=== PATIENT | male | born 1965 ===

== ENCOUNTER → 2017-06-29 | Outpatient (CLI) | payer SELFPAY | END | disposition home or self-care (01) | LOC: LABWHC1 10:58 | PROVIDERS: ATTEND Urology | DX: N40.0 Benign prostatic hyperplasia without lower urinary tract symptoms (principal) | CPT/HCPCS: 36415; 84153 ==

== ENCOUNTER 2017-12-28 11:46 | Emergency (ER) | payer OTHER ==
--- NOTE | 2017-12-28 12:45 | XR ---
EXAMINATION TYPE: XR chest 2V DATE OF EXAM: 12/28/2017 COMPARISON: 10/03/2016 TECHNIQUE: PA and lateral views submitted. HISTORY: Cough and congestion FINDINGS: The lungs are clear and there is no pneumothorax, pleural effusion, or focal pneumonia. Mild hyperi nflation. Arthropathy of the right AC joint. No overt failure. Correlate for COPD. IMPRESSION: 1. No acute process.
--- NOTE | 2017-12-28 12:51 | CT ---
EXAMINATION TYPE: CT abdomen pelvis wo con DATE OF EXAM: 12/28/2017 COMPARISON: NONE HISTORY: LLQ pain, pelvic pain, history of renal stones CT DLP: 961 mGycm Automated exposure control for dose reduction was used. TECHNIQUE: Helical acquisition of images was performed from the lung bases through the pelvis. FINDINGS: LUNG BASES: There is minimal bibasilar subsegmental dependent atelectasis. LIVER/GB: Hepatic cysts measure 2.5 cm, 6 mm, and 7 mm on series 3 image 25, 22, and 12 respectively. PANCREAS: No significant abnormality is seen. SPLEEN: Small splenule seen adjacent to the mentasta spleen. ADRENALS: No significant abnormality is seen. No nodularity. KIDNEYS: Multiple left-sided calculi are seen within the left mid pole and lower pole measuring up to 8 mm within the mid pole anteriorly and up to 6 mm within the lower pole. There are 5 total in numbe r on the left. No right-sided nephrolithiasis. No hydronephrosis bilaterally. There is fullness of th e left renal pelvis and a renal sinus cyst. Other cortically-based bilateral probable renal cysts are seen although not fully evaluated without contrast. FREE AIR: No free air is visualized ADENOPATHY: No greater than 1 cm short axis lymph nodes are seen within the abdomen or pelvis. REPRODUCTIVE ORGANS: No significant abnormality is seen URINARY BLADDER: No calculi within the urinary bladder. OSSEOUS STRUCTURES: Minimal multilevel degenerative disc disease of the visualized thoracic lumbar s pine. Osseous structures are intact. BOWEL: There is an epiploic appendage on the antimesenteric border of the sigmoid colon with surroun ding inflammatory fat stranding customer development representative of acute epiploic appendicitis. No bowel obstruction o r focal bowel wall thickening is identified. IMPRESSION: 1. ACUTE EPIPLOIC APPENDICITIS IN THE ANTIMESENTERIC BORDER OF THE SIGMOID COLON. 2. MULTIPLE NONOBSTRUCTING LEFT-SIDED RENAL CALCULI TOTALING 5 IN NUMBER AND MEASURING UP TO 8 MM. NO HYDRONEPHROSIS OR OBSTRUCTIVE UROPATHY BILATERALLY.
--- NOTE | 2017-12-28 13:02 | ED ---
Abdominal Pain HPI - General Chief Complaint: Abdominal Pain Stated Complaint: LOWER LEFT ABDOMEN PAIN Time Seen by Provider: 12/28/17 11:59 Source: patient Mode of arrival: ambulatory Limitations: no limitations - History of Present Illness Initial Comments: This is a 52-year-old male with a history of kidney stones in the past he states he has to still was in his left kidney who states that 4 days ago he was lifting something at work he started developing sharp left lower quadrant and flank abdominal pain. It is worse is 10 now it's almost gone. He is not feeling any abnormalities states when he pushes on certain areas it hurts he had no dysuria hematuria fevers chills sweats or other symptoms. He states he had a similar episode like this in the past we did some lifting. Additionally he states she's been doing a lot of coughing he believes he has a bronchitis that is still going on. He denies any phlegm production. No nasal discharge. The pain is described as sharp when it occurs it does not radiate to his testicles or penis. MD Complaint: abdominal pain, flank pain - Related Data Home Medications Medication Instructions Recorded Confirmed Ibuprofen [Motrin] 800 mg PO Q6H PRN 12/28/17 12/28/17 Previous Rx's Medication Instructions Recorded Amoxicillin/Potassium Clav 1 tab PO Q12HR #20 tab 12/28/17 [Augmentin 875-125 Tablet] Ibuprofen 800 mg PO Q6HR PRN #20 tablet 12/28/17 Allergies Allergy/AdvReac Type Severity Reaction Status Date / Time ciprofloxacin [From Cipro] AdvReac Nausea & Verified 12/28/17 12:11 Vomiting & Diarrhea ciprofloxacin HCl AdvReac Nausea & Verified 12/28/17 12:11 [From Cipro] Vomiting & Diarrhea Review of Systems ROS Statement: Those systems with pertinent positive or pertinent negative responses have been documented in the HPI. ROS Other: All systems not noted in ROS Statement are negative. Past Medical History Additional Past Medical History / Comment(s): kidney stones History of Any Multi-Drug Resistant Organisms: None Reported Past Surgical History: No Surgical Hx Reported Additional Past Surgical History / Comment(s): testicular torsion surgery Past Anesthesia/Blood Transfusion Reactions: Unable to Obtain Additional Past Anesthesia/Blood Transfusion Reaction / Comment(s): pt. states he has not previously received anesethia Past Psychological History: No Psychological Hx Reported Smoking Status: Former smoker Past Alcohol Use History: None Reported Past Drug Use History: None Reported - Past Family History Father Family Medical History: Myocardial Infarction (MS) Additional Family Medical History / Comment(s): pt. states his father has had an MS in the past and has a pacemaker General Exam - General Exam Comments Initial Comments: This is a well-developed well-nourished awake alert oriented 3 male Limitations: no limitations General appearance: alert, in no apparent distress Head exam: Present: atraumatic, normocephalic, normal inspection Eye exam: Present: normal appearance, PERRL, EOMI. Absent: scleral icterus, conjunctival injection, periorbital swelling ENT exam: Present: normal exam, mucous membranes moist Neck exam: Present: normal inspection. Absent: tenderness, meningismus, lymphadenopathy Respiratory exam: Present: normal lung sounds bilaterally. Absent: respiratory distress, wheezes, rales, rhonchi, stridor Cardiovascular Exam: Present: regular rate, normal rhythm, normal heart sounds. Absent: systolic murmur, diastolic murmur, rubs, gallop, clicks GI/Abdominal exam: Present: soft, tenderness (Some tenderness palpation just lateral to the rectus muscles into the left lower quadrant abdomen. No defect is palpable no other findings no erythema no open wounds), normal bowel sounds. Absent: distended, guarding, rebound, rigid, mass, bruit, pulsatile mass, hernia Rectal exam: Present: deferred exam: Present: normal inspection. Absent: testicular tenderness Extremities exam: Present: normal inspection, full ROM, normal capillary refill. Absent: tenderness, pedal edema, joint swelling, calf tenderness Back exam: Present: normal inspection Neurological exam: Present: alert, oriented X3, CN II-XII intact Psychiatric exam: Present: normal affect, normal mood Skin exam: Present: warm, dry, intact, normal color. Absent: rash Course Vital Signs 12/28/17 12/28/17 11:48 13:49 Temperature 98.1 F 97.4 F L Pulse Rate 69 88 Respiratory 20 18 Rate Blood Pressure 156/87 114/76 O2 Sat by Pulse 99 99 Oximetry Medical Decision Making - Medical Decision Making I did discuss [employer] the patient and family members or present in addition to Dr. Pelletier. The patient will be discharged on oral antibiotics he is a follow -up in 4 days and return if any problems. The presentation is consistent with both the epiploic appendicitis as well as a likely abdominal wall muscle strain due to the precipitating event of heavy lifting. - Lab Data Result diagrams: 12/28/17 13:56 18 13:56 Lab Results 18 18 18 Range/Units 12:12 13:56 13:56 WBC 9.0 (3.8-10.6) k/uL RBC 5.17 (4.30-5.90) m/uL Hgb 16.3 (13.0-17.5) gm/dL Hct 46.0 (39.0-53.0) % MCV 89.0 (80.0-100.0) fL MCH 31.6 (25.0-35.0) pg MCHC 35.5 (31.0-37.0) g/dL RDW 12.9 (11.5-15.5) % Plt Count 275 (150-450) k/uL Neutrophils % 55 % Lymphocytes % 35 % Monocytes % 4 % Eosinophils % 3 % Basophils % 1 % Neutrophils # 5.0 (1.3-7.7) k/uL Lymphocytes # 3.2 (1.0-4.8) k/uL Monocytes # 0.4 (0-1.0) k/uL Eosinophils # 0.3 (0-0.7) k/uL Basophils # 0.1 (0-0.2) k/uL PT 10.3 (9.0-12.0) sec INR 1.0 (<1.2) APTT 25.3 (22.0-30.0) sec Sodium (137-145) mmol/L Potassium (3.5-5.1) mmol/L Chloride (98-107) mmol/L Carbon Dioxide (22-30) mmol/L Anion Gap mmol/L BUN (9-20) mg/dL Creatinine (0.66-1.25) mg/dL Est GFR (CKD-EPI)AfAm (>60 ml/min/1.73 sqM) Est GFR (CKD-EPI)NonAf (>60 ml/min/1.73 sqM) Glucose (74-99) mg/dL Calcium (8.4-10.2) mg/dL Magnesium (1.6-2.3) mg/dL Total Bilirubin (0.2-1.3) mg/dL AST (17-59) U/L ALT (21-72) U/L Alkaline Phosphatase (38-126) U/L Total Creatine Kinase (55-170) U/L CK-MB (CK-2) (0.0-2.4) ng/mL CK-MB (CK-2) Rel Index Troponin I (0.000-0.034) ng/mL Total Protein (6.3-8.2) g/dL Albumin (3.5-5.0) g/dL Urine Color Yellow Urine Appearance Clear (Clear) Urine pH 6.5 (5.0-8.0) Ur Specific [place] 1.018 (1.001-1.035) Urine Protein Negative (Negative) Urine Glucose (UA) Negative (Negative) Urine Ketones Negative (Negative) Urine Blood Negative (Negative) Urine Nitrite Negative (Negative) Urine Bilirubin Negative (Negative) Urine Urobilinogen <2.0 (<2.0) mg/dL Ur Leukocyte Esterase Trace H (Negative) Urine WBC 5 (0-5) /hpf Urine Mucus Rare H (None) /hpf 12/28/17 12/28/17 Range/Units 13:56 13:56 WBC (3.8-10.6) k/uL RBC (4.30-5.90) m/uL Hgb (13.0-17.5) gm/dL Hct (39.0-53.0) % MCV (80.0-100.0) fL MCH (25.0-35.0) pg MCHC (31.0-37.0) g/dL RDW (11.5-15.5) % Plt Count (150-450) k/uL Neutrophils % % Lymphocytes % % Monocytes % % Eosinophils % % Basophils % % Neutrophils # (1.3-7.7) k/uL Lymphocytes # (1.0-4.8) k/uL Monocytes # (0-1.0) k/uL Eosinophils # (0-0.7) k/uL Basophils # (0-0.2) k/uL PT (9.0-12.0) sec INR (<1.2) APTT (22.0-30.0) sec Sodium 143 (137-145) mmol/L Potassium 4.1 (3.5-5.1) mmol/L Chloride 107 (98-107) mmol/L Carbon Dioxide 25 (22-30) mmol/L Anion Gap 11 mmol/L BUN 19 (9-20) mg/dL Creatinine 0.60 L (0.66-1.25) mg/dL Est GFR (CKD-EPI)AfAm >90 (>60 ml/min/1.73 sqM) Est GFR (CKD-EPI)NonAf >90 (>60 ml/min/1.73 sqM) Glucose 86 (74-99) mg/dL Calcium 10.1 (8.4-10.2) mg/dL Magnesium 2.1 (1.6-2.3) mg/dL Total Bilirubin 0.7 (0.2-1.3) mg/dL AST 25 (17-59) U/L ALT 43 (21-72) U/L Alkaline Phosphatase 78 (38-126) U/L Total Creatine Kinase 78 (55-170) U/L CK-MB (CK-2) 0.3 (0.0-2.4) ng/mL CK-MB (CK-2) Rel Index 0.4 Troponin I <0.012 (0.000-0.034) ng/mL Total Protein 7.4 (6.3-8.2) g/dL Albumin 4.5 (3.5-5.0) g/dL Urine Color Urine Appearance (Clear) Urine pH (5.0-8.0) Ur Specific [place] (1.001-1.035) Urine Protein (Negative) Urine Glucose (UA) (Negative) Urine Ketones (Negative) Urine Blood (Negative) Urine Nitrite (Negative) Urine Bilirubin (Negative) Urine Urobilinogen (<2.0) mg/dL Ur Leukocyte Esterase (Negative) Urine WBC (0-5) /hpf Urine Mucus (None) /hpf - Radiology Data Radiology results: report reviewed (I did review the imaging and results the patient does demonstrate acute epiploic appendicitis the antimesenteric border of the sigmoid colon. He also does have left-sided renal calculus 5. No obstruction), image reviewed Disposition Clinical Impression: Abdominal pain, Appendicitis epiploica, Muscle strain Disposition: HOME SELF-CARE Condition: Good Instructions: Abdominal Pain (ED), Muscle Strain (ED) Additional Instructions: Follow-up with Dr. Pelletier in 4 days Prescriptions: Amoxicillin/Potassium Clav [Augmentin 875-125 Tablet] 1 tab PO Q12HR #20 tab Ibuprofen 800 mg PO Q6HR PRN #20 tablet PRN Reason: Pain Referrals: None,Stated [Primary Care Provider] - 1-2 days Jarred Pelletier MD [STAFF PHYSICIAN] - 1-2 days
[2017-12-28 13:11] LABS: Appearance,Urine Clear (Clear); Bilirubin,Urine Negative (Negative); Blood,Urine Negative (Negative); Color,Urine Yellow; Glucose,Urine (UA) Negative (Negative); Ketones,Urine Negative (Negative); Leukocyte Esterase,Urine Trace (Negative); Mucus,Urine Rare /hpf; Nitrite,Urine Negative (Negative); PH, Urine 6.5 (5.0-8.0); Protein,Urine Negative (Negative); Specific Gravity,Urine 1.018 (1.001-1.035); Urobilinogen,Urine <2.0 mg/dL (<2.0); WBC,Urine 5 /hpf (0-5)
[2017-12-28 14:05] LABS: Basophils # (A) 0.1 k/uL (0-0.2); Basophils % (A) 1 %; Eosinophils # (A) 0.3 k/uL (0-0.7); Eosinophils % (A) 3 %; HGB 16.3 gm/dL (13.0-17.5); Lymphocytes # (A) 3.2 k/uL (1.0-4.8); Lymphocytes % (A) 35 %; MCH 31.6 pg (25.0-35.0); MCHC 35.5 g/dL (31.0-37.0); Mean Platelet Volume 6.9; Monocytes # (A) 0.4 k/uL (0-1.0); Monocytes % (A) 4 %; Neutrophils % (A) 55 %; Platelet Count 275 k/uL (150-450); RBC 5.17 m/uL (4.30-5.90); RDW 12.9 % (11.5-15.5)
[2017-12-28 14:19] LABS: Partial Thromboplastin Time 25.3 sec (22.0-30.0); Prothrombin Time 10.3 sec (9.0-12.0)
[2017-12-28 14:26] LABS: ALT 43 U/L (21-72); AST 25 U/L (17-59); Albumin 4.5 g/dL (3.5-5.0); Alkaline Phosphatase 78 U/L (38-126); Anion Gap 11 mmol/L; Blood Urea Nitrogen 19 mg/dL (9-20); Calcium 10.1 mg/dL (8.4-10.2); Carbon Dioxide 25 mmol/L (22-30); Chloride 107 mmol/L (98-107); Creatine Kinase 78 U/L (55-170); Glucose 86 mg/dL (74-99); Magnesium 2.1 mg/dL (1.6-2.3); Sodium 143 mmol/L (137-145); Total Bilirubin 0.7 mg/dL (0.2-1.3); Total Protein 7.4 g/dL (6.3-8.2)
[2017-12-28 14:30] LABS: Potassium 4.1 mmol/L (3.5-5.1)
[2017-12-28 14:38] LABS: Creatine Kinase MB 0.3 ng/mL (0.0-2.4); Troponin I <0.012 ng/mL (0.000-0.034)
[2017-12-28 15:34] VITALS: BP 139/88; PULSE 60; RESP 16; TEMP 98.1
== END 2017-12-28 15:38 | disposition home or self-care (01) ==
LOC: EC 11:46
DX: S39.011A Strain of muscle, fascia and tendon of abdomen, initial encounter (principal); K63.89 Other specified diseases of intestine; R05 Cough; Z87.891 Personal history of nicotine dependence; Z88.1 Allergy status to other antibiotic agents; X50.0XXA Overexertion from strenuous movement or load, initial encounter
CPT/HCPCS: 36415; 71046; 74176; 80053; 81001; 82550; 82553; 83735; 84484; 85025; 85610; 85730; 87040; 99284

== ENCOUNTER 2018-10-08 09:34 | Emergency (ER) | payer OTHER ==
[2018-10-08 09:39] VITALS: TEMP 97.8
[2018-10-08] MEDS ORDERED: KETOROLAC 30 MG/ML 1 ML VIAL IVP STA (09:47)
[2018-10-08] MEDS ORDERED: SODIUM CHLORIDE 0.9% 1,000 ML IV STA (09:47)
[2018-10-08] MEDS ORDERED: ONDANSETRON 4 MG/2 ML VIAL IVP STA (09:54)
[2018-10-08 09:57] VITALS: BP 117/103; PULSE 71; RESP 18
--- NOTE | 2018-10-08 09:57 | ED ---
General Adult HPI - General Chief complaint: Abdominal Pain Stated complaint: Kidney stone Time Seen by Provider: 10/08/18 09:35 Source: patient, RN notes reviewed Mode of arrival: ambulatory Limitations: no limitations - History of Present Illness Initial comments: This a 53-year-old male who presents emergency Department complaining of left flank pain. Patient states he has a long history of kidney stones. Patient states Dr. Wild still come the emergency department and get pain medications so he can get over these episodes of flank pain. Patient denies any anterior abdominal pain. Patient denies any chest pain or difficulty breathing. Patient denies any fever chills. Patient states this feels typical of his kidney stones. Patient's very nauseated but has yet to vomit. - Related Data Previous Rx's Medication Instructions Recorded Hydrocodone/Acetaminophen [[place] 1 each PO Q4HR PRN #14 tab 10/08/18 5-325] Ketorolac [Toradol] 10 mg PO Q6HR #15 tab 10/08/18 Tamsulosin [Flomax] 0.4 mg PO DAILY #10 cap 10/08/18 Allergies Allergy/AdvReac Type Severity Reaction Status Date / Time ciprofloxacin [From Cipro] AdvReac Nausea & Verified 10/08/18 09:43 Vomiting & Diarrhea ciprofloxacin HCl AdvReac Nausea & Verified 10/08/18 09:43 [From Cipro] Vomiting & Diarrhea Review of Systems ROS Statement: Those systems with pertinent positive or pertinent negative responses have been documented in the HPI. ROS Other: All systems not noted in ROS Statement are negative. Past Medical History Additional Past Medical History / Comment(s): kidney stones History of Any Multi-Drug Resistant Organisms: None Reported Past Surgical History: No Surgical Hx Reported Additional Past Surgical History / Comment(s): testicular torsion surgery Past Anesthesia/Blood Transfusion Reactions: Unable to Obtain Additional Past Anesthesia/Blood Transfusion Reaction / Comment(s): pt. states he has not previously received anesethia Past Psychological History: No Psychological Hx Reported Smoking Status: Former smoker Past Alcohol Use History: None Reported Past Drug Use History: None Reported - Past Family History Father Family Medical History: Myocardial Infarction (CO) Additional Family Medical History / Comment(s): pt. states his father has had an CO in the past and has a pacemaker General Exam - General Exam Comments Initial Comments: GENERAL: Patient is well-developed and well-nourished. Patient is nontoxic and well- hydrated and is in moderate distress. ENT: Neck is soft and supple. No significant lymphadenopathy is noted. Oropharynx is clear. Moist mucous membranes. Neck has full range of motion without eliciting any pain. EYES: The sclera were anicteric and conjunctiva were pink and moist. Extraocular movements were intact and pupils were equal round and reactive to light. Eyelids were unremarkable. PULMONARY: Unlabored respirations. Good breath sounds bilaterally. No audible rales rhonchi or wheezing was noted. CARDIOVASCULAR: There is a regular rate and rhythm without any murmurs gallops or rubs. ABDOMEN: Soft and nontender with normal bowel sounds. No palpable organomegaly was noted. There is no palpable pulsatile mass. SKIN: Skin is clear with no lesions or rashes and otherwise unremarkable. NEUROLOGIC: Patient is alert and oriented x3. Cranial nerves II through XII are grossly intact. Motor and sensory are also intact. Normal speech, volume and content. Symmetrical smile. MUSCULOSKELETAL: Normal extremities with adequate strength and full range of motion. LYMPHATICS: No significant lymphadenopathy is noted PSYCHIATRIC: Normal psychiatric evaluation. Limitations: no limitations Course Vital Signs 10/08/18 10/08/18 09:36 09:56 Temperature 97.8 F Pulse Rate 76 71 Respiratory 24 18 Rate Blood Pressure 117/103 O2 Sat by Pulse 98 96 Oximetry Medical Decision Making - Medical Decision Making Patient did not want any radiologic studies done. She states she was instructed by Dr. Wild not to have any x-rays or CAT scans done. Patient had hematuria. Patient received Toradol and Dilaudid his pain was completely resolved. - Lab Data Result diagrams: 10/08/18 09:52 10/08/18 09:52 Lab Results 10/08/18 10/08/18 10/08/18 Range/Units 09:52 09:52 10:05 WBC 10.0 (3.8-10.6) k/uL RBC 5.03 (4.30-5.90) m/uL Hgb 15.8 (13.0-17.5) gm/dL Hct 46.1 (39.0-53.0) % MCV 91.6 (80.0-100.0) fL MCH 31.4 (25.0-35.0) pg MCHC 34.3 (31.0-37.0) g/dL RDW 13.0 (11.5-15.5) % Plt Count 257 (150-450) k/uL Neutrophils % 48 % Lymphocytes % 43 % Monocytes % 5 % Eosinophils % 2 % Basophils % 1 % Neutrophils # 4.8 (1.3-7.7) k/uL Lymphocytes # 4.3 (1.0-4.8) k/uL Monocytes # 0.5 (0-1.0) k/uL Eosinophils # 0.2 (0-0.7) k/uL Basophils # 0.1 (0-0.2) k/uL Sodium 142 (137-145) mmol/L Potassium 4.0 (3.5-5.1) mmol/L Chloride 112 H (98-107) mmol/L Carbon Dioxide 21 L (22-30) mmol/L Anion Gap 9 mmol/L BUN 15 (9-20) mg/dL Creatinine 0.67 (0.66-1.25) mg/dL Est GFR (CKD-EPI)AfAm >90 (>60 ml/min/1.73 sqM) Est GFR (CKD-EPI)NonAf >90 (>60 ml/min/1.73 sqM) Glucose 108 H (74-99) mg/dL Calcium 9.4 (8.4-10.2) mg/dL Total Bilirubin 0.7 (0.2-1.3) mg/dL AST 25 (17-59) U/L ALT 32 (21-72) U/L Alkaline Phosphatase 69 (38-126) U/L Total Protein 7.1 (6.3-8.2) g/dL Albumin 4.3 (3.5-5.0) g/dL Amylase 65 (30-110) U/L Lipase 56 (23-300) U/L Urine Color Yellow Urine Appearance Cloudy (Clear) Urine pH 5.5 (5.0-8.0) Ur Specific [place] 1.022 (1.001-1.035) Urine Protein 1+ H (Negative) Urine Glucose (UA) Negative (Negative) Urine Ketones Negative (Negative) Urine Blood Large H (Negative) Urine Nitrite Negative (Negative) Urine Bilirubin Negative (Negative) Urine Urobilinogen <2.0 (<2.0) mg/dL Ur Leukocyte Esterase Trace H (Negative) Urine RBC >182 H (0-5) /hpf Urine WBC 9 H (0-5) /hpf Ur Squamous Epith Cells <1 (0-4) /hpf Urine Bacteria Rare H (None) /hpf Urine Mucus Moderate H (None) /hpf Disposition Clinical Impression: Renal colic Disposition: HOME SELF-CARE Condition: Good Instructions: Renal Colic (ED) Prescriptions: Hydrocodone/Acetaminophen [[place] 5-325] 1 each PO Q4HR PRN #14 tab PRN Reason: Pain Ketorolac [Toradol] 10 mg PO Q6HR #15 tab Tamsulosin [Flomax] 0.4 mg PO DAILY #10 cap Is patient prescribed a controlled substance at d/c from ED?: Yes When asked, does pt state using other controlled substances?: No If prescribed controlled substance>3 days was MAPS reviewed?: Prescribed <3 Days If opioid is for acute pain is fill amount 7 days or less?: Yes If Rx opioid, was Start Talking consent form obtained?: Yes Referrals: Manuel Baig MD [STAFF PHYSICIAN] - 1-2 days Time of Disposition: 11:00
[2018-10-08 10:04] LABS: Basophils # (A) 0.1 k/uL (0-0.2); Basophils % (A) 1 %; Eosinophils # (A) 0.2 k/uL (0-0.7); Eosinophils % (A) 2 %; HCT 46.1 % (39.0-53.0); HGB 15.8 gm/dL (13.0-17.5); Lymphocytes # (A) 4.3 k/uL (1.0-4.8); Lymphocytes % (A) 43 %; MCH 31.4 pg (25.0-35.0); MCHC 34.3 g/dL (31.0-37.0); MCV 91.6 fL (80.0-100.0); Mean Platelet Volume 7.1; Monocytes # (A) 0.5 k/uL (0-1.0); Monocytes % (A) 5 %; Neutrophils # (A) 4.8 k/uL (1.3-7.7); Neutrophils % (A) 48 %; Platelet Count 257 k/uL (150-450); RBC 5.03 m/uL (4.30-5.90)
[2018-10-08 10:13] LABS: ALT 32 U/L (21-72); AST 25 U/L (17-59); Albumin 4.3 g/dL (3.5-5.0); Alkaline Phosphatase 69 U/L (38-126); Amylase 65 U/L (30-110); Anion Gap 9 mmol/L; Blood Urea Nitrogen 15 mg/dL (9-20); Calcium 9.4 mg/dL (8.4-10.2); Carbon Dioxide 21 mmol/L (22-30); Chloride 112 mmol/L (98-107); Glucose 108 mg/dL (74-99); Lipase 56 U/L (23-300); Sodium 142 mmol/L (137-145); Total Bilirubin 0.7 mg/dL (0.2-1.3); Total Protein 7.1 g/dL (6.3-8.2)
[2018-10-08 10:19] LABS: Appearance,Urine Cloudy (Clear); Bacteria,Urine Rare /hpf; Bilirubin,Urine Negative (Negative); Blood,Urine Large (Negative); Color,Urine Yellow; Glucose,Urine (UA) Negative (Negative); Ketones,Urine Negative (Negative); Leukocyte Esterase,Urine Trace (Negative); Mucus,Urine Moderate /hpf; Nitrite,Urine Negative (Negative); PH, Urine 5.5 (5.0-8.0); Protein,Urine 1+ (Negative); RBC,Urine >182 /hpf (0-5); Specific Gravity,Urine 1.022 (1.001-1.035); Squamous Epithelial Cell,Urine <1 /hpf (0-4); Urobilinogen,Urine <2.0 mg/dL (<2.0); WBC,Urine 9 /hpf (0-5)
[2018-10-08] MEDS ORDERED: HYDROmorphone 1 MG/ML 1 ML SYRINGE IVP STA (10:20)
== END 2018-10-08 11:15 | disposition home or self-care (01) ==
LOC: EC 09:34
DX: N23 Unspecified renal colic (principal); Z88.1 Allergy status to other antibiotic agents; Z87.891 Personal history of nicotine dependence
CPT/HCPCS: 36415; 80053; 82150; 83690; 85025; 81001; 99284; 96374; 96375 ×2; 96361; J2405; J1885; J1170

== ENCOUNTER → 2020-04-26 | Outpatient (CLI) | payer SELFPAY ==
--- NOTE | 2020-04-26 22:03 | XR ---
EXAMINATION TYPE: XR KUB DATE OF EXAM: 04/26/2020 2:08 PM CLINICAL HISTORY: Left-sided kidney stones. TECHNIQUE: Two supine KUB images of the abdomen are obtained. COMPARISON: CT abdomen and pelvis December 28, 2017. FINDINGS: Persistent 3 left renal calculi measuring up to 7 mm in size and possible 7 mm central left renal calculus. No definitive right-sided nephrolithiasis. Single right pelvic phlebolith. Spurring and disc space narrowing left L4-L5 level. Overall nonspecific bowel gas pattern. IMPRESSION: As above.
== END | disposition home or self-care (01) ==
LOC: RADXRMAIN 13:56
PROVIDERS: ATTEND Urology
DX: N20.0 Calculus of kidney (principal); I87.8 Other specified disorders of veins
CPT/HCPCS: 74018

== ENCOUNTER → 2021-01-07 | Outpatient (CLI) | payer SELFPAY ==
--- NOTE | 2021-01-07 13:03 | XR ---
KUB HISTORY: N 20.0, kidney stones Frontal KUB and 2 images correlated prior KUB dated 04/26/2020 Multiple calcifications are again noted over the left kidney as on prior exam. Right kidney somewhat obscured by overlying bowel gas. No evident pneumoperitoneum or bowel obstruction. IMPRESSION: Nephrolithiasis.
== END | disposition home or self-care (01) ==
LOC: RADXRMAIN 08:09
PROVIDERS: ATTEND Urology
DX: N20.0 Calculus of kidney (principal)
CPT/HCPCS: 74018

== ENCOUNTER 2021-04-16 20:03 | Emergency (ER) | payer BC ==
[2021-04-16 20:08] VITALS: BP 145/93; PULSE 92; RESP 16; TEMP 98.8
[2021-04-16] MEDS ORDERED: SODIUM CHLORIDE 0.9% 1,000 ML IV STA (20:22)
[2021-04-16] MEDS ORDERED: KETOROLAC 15 MG/ML 1 ML VIAL IVP STA (20:22)
[2021-04-16 20:48] LABS: Basophils # (A) 0.1 k/uL (0-0.2); Basophils % (A) 1 %; Eosinophils # (A) 0.1 k/uL (0-0.7); Eosinophils % (A) 2 %; HCT 40.6 % (39.0-53.0); Lymphocytes # (A) 2.8 k/uL (1.0-4.8); Lymphocytes % (A) 35 %; MCH 31.2 pg (25.0-35.0); MCHC 34.5 g/dL (31.0-37.0); MCV 90.3 fL (80.0-100.0); Monocytes # (A) 0.6 k/uL (0-1.0); Monocytes % (A) 7 %; Neutrophils # (A) 4.2 k/uL (1.3-7.7); Neutrophils % (A) 53 %; Platelet Count 273 k/uL (150-450); RDW 12.3 % (11.5-15.5); WBC 7.9 k/uL (3.8-10.6)
[2021-04-16 21:01] LABS: Calcium 9.6 mg/dL (8.4-10.2)
[2021-04-16] MEDS ORDERED: HYDROmorphone 1 MG/ML 1 ML SYRINGE IVP STA (21:01)
[2021-04-16] MEDS ORDERED: LIDOCAINE URO-JET JELLY 2% 5 ML KIT URETHRAL ONE (21:01)
[2021-04-16 21:43] LABS: Bacteria,Urine Many /hpf; Mucus,Urine Many /hpf; RBC,Urine >182 /hpf (0-5); WBC,Urine 167 /hpf (0-5)
[2021-04-16 21:46] LABS: Appearance,Urine Turbid (Clear); Color,Urine Dark Red
--- NOTE | 2021-04-16 21:46 | ED ---
Male Urogenital HPI - General Chief complaint: Urogenital Stated complaint: problems urinating Source: patient, family, RN notes reviewed, old records reviewed Mode of arrival: ambulatory Limitations: no limitations - History of Present Illness Initial comments: 55-year-old pleasant white male presents to the emergency room with his complaining of urinary retention after pulling his rubber stent out Sunday morning at 3 AM as directed. Patient had lithotripsy at [place] with Dr. Owens at [facility] and had his stent in for 5 days, Sunday thru Sunday. Patient states he had no issues urinating on Sunday after pulling the stent, urine was clear yellow and he felt really good. Today he urinated at 9 AM and has not been able to urinate since. Small amounts of blood only. Patient states that he was prescribed Toradol and that was helping him until this aft donna. Patient states the pain is 10 out of 10. He cannot get comfortable. He feels the spasms mostly in the left flank. Patient has a history of kidney stones with testicular torsion at age 9 patient denies any fevers, nausea vomiting or diarrhea. MD Complaint: other (Urinary retention and hematuria) Severity scale (1-10): 10 (Bladder fullness) Quality: other (Fullness) Consistency: constant Improves with: none Worsens with: palpation Reports: urinary retention, other (Stent removal yesterday) - Related Data Previous Rx's Medication Instructions Recorded Hydrocodone/Acetaminophen [[place] 1 each PO Q4HR PRN #14 tab 10/08/18 5-325] Ketorolac [Toradol] 10 mg PO Q6HR #15 tab 10/08/18 Tamsulosin [Flomax] 0.4 mg PO DAILY #10 cap 10/08/18 Ciprofloxacin HCl [Cipro] 500 mg PO Q12HR 7 Days #14 tablet 04/16/21 Allergies Allergy/AdvReac Type Severity Reaction Status Date / Time No Known Allergies Allergy Verified 04/16/21 20:42 Review of Systems ROS Statement: Those systems with pertinent positive or pertinent negative responses have been documented in the HPI. ROS Other: All systems not noted in ROS Statement are negative. Past Medical History Additional Past Medical History / Comment(s): kidney stones History of Any Multi-Drug Resistant Organisms: None Reported Past Surgical History: No Surgical Hx Reported Additional Past Surgical History / Comment(s): testicular torsion surgery Past Anesthesia/Blood Transfusion Reactions: Unable to Obtain Additional Past Anesthesia/Blood Transfusion Reaction / Comment(s): pt. states he has not previously received anesethia Past Psychological History: No Psychological Hx Reported Smoking Status: Never smoker Past Alcohol Use History: None Reported Past Drug Use History: None Reported - Past Family History Father Family Medical History: Myocardial Infarction ([place]) Additional Family Medical History / Comment(s): pt. states his father has had an [place] in the past and has a pacemaker General Exam Limitations: no limitations General appearance: alert, in distress (Upon arrival) Head exam: Present: atraumatic, normocephalic, normal inspection Eye exam: Present: normal appearance, PERRL, EOMI. Absent: scleral icterus, conjunctival injection, periorbital swelling Pupils: Present: normal accommodation ENT exam: Present: normal exam, normal oropharynx, mucous membranes moist Neck exam: Present: normal inspection, full ROM. Absent: tenderness, meningismus, lymphadenopathy, thyromegaly Respiratory exam: Present: normal lung sounds bilaterally. Absent: respiratory distress, wheezes, rales, rhonchi, stridor, chest wall tenderness, accessory muscle use, decreased breath sounds, prolonged expiratory Cardiovascular Exam: Present: regular rate, normal rhythm, normal heart sounds. Absent: systolic murmur, diastolic murmur, rubs, gallop, clicks GI/Abdominal exam: Present: soft, normal bowel sounds. Absent: distended, tenderness, guarding, rebound, rigid Rectal exam: Present: deferred Expanded Male exam: Present: other (Anthony catheter draining margarita red blood, no clots or stones seen) Extremities exam: Present: normal inspection, full ROM, normal capillary refill. Absent: tenderness, pedal edema, joint swelling, calf tenderness Back exam: Present: normal inspection, full ROM, CVA tenderness (L). Absent: tenderness, CVA tenderness (R), muscle spasm, paraspinal tenderness, vertebral tenderness, rash noted Neurological exam: Present: alert, oriented X3, CN II-XII intact Psychiatric exam: Present: normal affect, normal mood Skin exam: Present: warm, dry, intact, normal color. Absent: rash, cyanosis, diaphoretic, erythema, petechiae, pallor, mottled Course Vital Signs 04/16/21 20:05 Temperature 98.8 F Pulse Rate 92 Respiratory 16 Rate Blood Pressure 145/93 O2 Sat by Pulse 97 Oximetry Medical Decision Making - Medical Decision Making Hemoglobin and hematocrit is 14 and 40 respectively, WBC count 7.9. BUN is 34 creatinine is 1.74, GFR is 44. UA shows 167 WBCs and greater than 182 RBCs is likely related to the stent removal yesterday. Patient has mild tenderness over the left flank. Anthony placed and irrigated by registered nurse to clear of any potential blood clots. Patient will be sent home with Anthony catheter and a leg bag. He is afebrile, no complaints of chills, nausea vomiting or diarrhea. Dr. Blas at bedside to evaluate patient and recommends pt be prescribed Cipro 500 mg twice a day 7 days and directed to continue his Toradol as previously prescribed. He will be given Tylenol #3 for breakthrough pain. He'll also be directed to return to the emergency room or outpatient lab tomorrow for repeat BMP results to be sent to Dr. Tadeo Almonte is primary care doctor. Patient again directed to return to the emergency room with increasing pain, urinary retention or fevers. - Lab Data Result diagrams: 04/16/21 20:25 04/16/21 20:22 Lab Results 04/16/21 04/16/21 04/16/21 Range/Units 20:22 20:25 21:22 WBC 7.9 (3.8-10.6) k/uL RBC 4.50 (4.30-5.90) m/uL Hgb 14.0 (13.0-17.5) gm/dL Hct 40.6 (39.0-53.0) % MCV 90.3 (80.0-100.0) fL MCH 31.2 (25.0-35.0) pg MCHC 34.5 (31.0-37.0) g/dL RDW 12.3 (11.5-15.5) % Plt Count 273 (150-450) k/uL MPV 7.0 Neutrophils % 53 % Lymphocytes % 35 % Monocytes % 7 % Eosinophils % 2 % Basophils % 1 % Neutrophils # 4.2 (1.3-7.7) k/uL Lymphocytes # 2.8 (1.0-4.8) k/uL Monocytes # 0.6 (0-1.0) k/uL Eosinophils # 0.1 (0-0.7) k/uL Basophils # 0.1 (0-0.2) k/uL Sodium 143 (137-145) mmol/L Potassium 4.0 (3.5-5.1) mmol/L Chloride 108 H (98-107) mmol/L Carbon Dioxide 25 (22-30) mmol/L Anion Gap 10 mmol/L BUN 34 H (9-20) mg/dL Creatinine 1.74 H (0.66-1.25) mg/dL Est GFR (CKD-EPI)AfAm 51 (>60 ml/min/1.73 sqM) Est GFR (CKD-EPI)NonAf 44 (>60 ml/min/1.73 sqM) Glucose 114 H (74-99) mg/dL Calcium 9.6 (8.4-10.2) mg/dL Urine Color Dark Red Urine Appearance Turbid (Clear) Urine RBC >182 H (0-5) /hpf Urine WBC 167 H (0-5) /hpf Urine Bacteria Many H (None) /hpf Urine Mucus Many H (None) /hpf Disposition Clinical Impression: Urinary retention Disposition: HOME SELF-CARE Condition: Fair Instructions (If sedation given, give patient instructions): Urinary Retention in Men (ED), Urinary Tract Infection in Men (ED), Anthony Catheter Placement and Care (ED) Additional Instructions: Take the Cipro antibiotic as prescribed twice today for the next 7 days. Return to the emergency room for outpatient lab and have your BMP levels evaluated tomorrow on April 17, 2021. Continue your medication as previously prescribed by your urologist. Prescriptions: Ciprofloxacin HCl [Cipro] 500 mg PO Q12HR 7 Days #14 tablet Is patient prescribed a controlled substance at d/c from ED?: No Referrals: Tadeo Almonte DO [Primary Care Provider] - 1-2 days Wilfred Riddle MD [STAFF PHYSICIAN] - 1-2 days Time of Disposition: 22:37
[2021-04-16] MEDS ORDERED: ACET/COD 300 MG/30 MG STARTER PACK 6 TAB BTL PO STA (22:29)
[2021-04-16] MEDS ORDERED: ALPRAZolam 0.25 MG TAB PO STA (22:29)
== END 2021-04-16 22:59 | disposition home or self-care (01) ==
LOC: EC 20:03
DX: R33.9 Retention of urine, unspecified (principal); R31.9 Hematuria, unspecified
CPT/HCPCS: 99283; 51702; 96374; 96375; 96361; 36415; 80048; 85025; 81001; J1170; J1885

== ENCOUNTER 2021-04-17 09:45 | Emergency (ER) | payer BC ==
--- NOTE | 2021-04-17 10:28 | ED ---
General Adult HPI - General Chief complaint: Urogenital Stated complaint: plugged catheter Time Seen by Provider: 04/17/21 09:52 Source: patient, RN notes reviewed Mode of arrival: ambulatory Limitations: no limitations - History of Present Illness Initial comments: 55-year-old male presents emergency Department chief complaint of Anthony catheter not draining. Patient states he had lithotripsy states her Anthony catheter placed states it started draining this morning. He states he feels like he has to go there is urine coming around the catheter. Patient denies any fevers or chills he states he does have some pain from his kidney stone. No nausea vomiting no other complaints. - Related Data Previous Rx's Medication Instructions Recorded Hydrocodone/Acetaminophen [[place] 1 each PO Q4HR PRN #14 tab 10/08/18 5-325] Ketorolac [Toradol] 10 mg PO Q6HR #15 tab 10/08/18 Tamsulosin [Flomax] 0.4 mg PO DAILY #10 cap 10/08/18 Ciprofloxacin HCl [Cipro] 500 mg PO Q12HR 7 Days #14 tablet 04/16/21 Allergies Allergy/AdvReac Type Severity Reaction Status Date / Time ciprofloxacin [From Cipro] Allergy Hallucinati Verified 04/17/21 09:50 ons Review of Systems ROS Statement: Those systems with pertinent positive or pertinent negative responses have been documented in the HPI. ROS Other: All systems not noted in ROS Statement are negative. Past Medical History Additional Past Medical History / Comment(s): kidney stones History of Any Multi-Drug Resistant Organisms: None Reported Past Surgical History: No Surgical Hx Reported Additional Past Surgical History / Comment(s): testicular torsion surgery,lithotripsy Past Anesthesia/Blood Transfusion Reactions: Unable to Obtain Additional Past Anesthesia/Blood Transfusion Reaction / Comment(s): pt. states he has not previously received anesethia Past Psychological History: No Psychological Hx Reported Smoking Status: Never smoker Past Alcohol Use History: None Reported Past Drug Use History: None Reported - Past Family History Father Family Medical History: Myocardial Infarction ([place]) Additional Family Medical History / Comment(s): pt. states his father has had an [place] in the past and has a pacemaker General Exam Limitations: no limitations General appearance: alert, in no apparent distress Head exam: Present: atraumatic, normocephalic, normal inspection Respiratory exam: Present: normal lung sounds bilaterally. Absent: respiratory distress, wheezes, rales, rhonchi, stridor Cardiovascular Exam: Present: regular rate, normal rhythm, normal heart sounds. Absent: systolic murmur, diastolic murmur, rubs, gallop, clicks GI/Abdominal exam: Present: soft, tenderness, normal bowel sounds. Absent: distended, guarding, rebound, rigid Course Vital Signs 04/17/21 09:45 Temperature 97.9 F Pulse Rate 85 Respiratory 18 Rate Blood Pressure 150/99 O2 Sat by Pulse 99 Oximetry Medical Decision Making - Medical Decision Making Patient presents for Anthony catheter. Patient was schedule have his catheter removed this was removed he was able to urinate without difficulty after passing some small blood clots. Patient states his pain is resolved be discharged in stable condition return parameters were discussed his bicycle his urologist for close follow-up. - Lab Data Result diagrams: 04/17/21 10:59 04/17/21 10:59 Lab Results 04/17/21 04/17/21 Range/Units 10:59 10:59 WBC 10.1 (3.8-10.6) k/uL RBC 4.53 (4.30-5.90) m/uL Hgb 13.9 (13.0-17.5) gm/dL Hct 41.9 (39.0-53.0) % MCV 92.6 (80.0-100.0) fL MCH 30.6 (25.0-35.0) pg MCHC 33.1 (31.0-37.0) g/dL RDW 12.8 (11.5-15.5) % Plt Count 257 (150-450) k/uL MPV 7.6 Neutrophils % 74 % Lymphocytes % 16 % Monocytes % 7 % Eosinophils % 1 % Basophils % 1 % Neutrophils # 7.5 (1.3-7.7) k/uL Lymphocytes # 1.6 (1.0-4.8) k/uL Monocytes # 0.7 (0-1.0) k/uL Eosinophils # 0.1 (0-0.7) k/uL Basophils # 0.1 (0-0.2) k/uL Sodium 135 L (137-145) mmol/L Potassium 4.3 (3.5-5.1) mmol/L Chloride 103 (98-107) mmol/L Carbon Dioxide 23 (22-30) mmol/L Anion Gap 9 mmol/L BUN 25 H (9-20) mg/dL Creatinine 1.24 (0.66-1.25) mg/dL Est GFR (CKD-EPI)AfAm 77 (>60 ml/min/1.73 sqM) Est GFR (CKD-EPI)NonAf 66 (>60 ml/min/1.73 sqM) Glucose 96 (74-99) mg/dL Calcium 9.2 (8.4-10.2) mg/dL Disposition Clinical Impression: Hematuria, Kidney stone, Urinary retention, Obstructed Anthony catheter Disposition: HOME SELF-CARE Condition: Stable Instructions (If sedation given, give patient instructions): Hematuria (ED) Additional Instructions: Please return to the Emergency Department if symptoms worsen or any other concerns. Is patient prescribed a controlled substance at d/c from ED?: No Referrals: Tadeo Almonte DO [Primary Care Provider] - 1-2 days Time of Disposition: 12:06
[2021-04-17] MEDS ORDERED: KETOROLAC 15 MG/ML 1 ML VIAL IVP STA (10:43)
[2021-04-17] MEDS ORDERED: SODIUM CHLORIDE 0.9% 1,000 ML IV ONE (10:43)
[2021-04-17] MEDS ORDERED: ONDANSETRON 4 MG/2 ML VIAL IVP STA (10:43)
[2021-04-17] MEDS ORDERED: HYDROmorphone 0.5 MG/0.5 ML SYRINGE IVP STA (10:43)
[2021-04-17 11:50] LABS: Calcium 9.2 mg/dL (8.4-10.2); Potassium 4.3 mmol/L (3.5-5.1)
[2021-04-17 11:54] LABS: HCT 41.9 % (39.0-53.0); HGB 13.9 gm/dL (13.0-17.5); MCH 30.6 pg (25.0-35.0); MCHC 33.1 g/dL (31.0-37.0); MCV 92.6 fL (80.0-100.0); RBC 4.53 m/uL (4.30-5.90); RDW 12.8 % (11.5-15.5); WBC 10.1 k/uL (3.8-10.6)
[2021-04-17 11:55] LABS: Basophils # (A) 0.1 k/uL (0-0.2); Basophils % (A) 1 %; Eosinophils # (A) 0.1 k/uL (0-0.7); Eosinophils % (A) 1 %; Lymphocytes # (A) 1.6 k/uL (1.0-4.8); Lymphocytes % (A) 16 %; Mean Platelet Volume 7.6; Monocytes # (A) 0.7 k/uL (0-1.0); Monocytes % (A) 7 %; Neutrophils # (A) 7.5 k/uL (1.3-7.7); Neutrophils % (A) 74 %; Platelet Count 257 k/uL (150-450)
[2021-04-17 12:18] VITALS: BP 128/78; PULSE 78; RESP 16; TEMP 98
== END 2021-04-17 12:17 | disposition home or self-care (01) ==
LOC: EC 09:45
DX: T83.091A Other mechanical complication of indwelling urethral catheter, initial encounter (principal); N20.0 Calculus of kidney; R33.9 Retention of urine, unspecified; Z88.1 Allergy status to other antibiotic agents
CPT/HCPCS: 99283; 96374; 96375; 96361; 36415; 80048; 85025; J2405; J1885; J1170

== ENCOUNTER 2021-09-27 08:20 | Day surgery (SDC) | payer BC ==
[2021-09-22 15:57] VITALS: BMI 27.4
[2021-09-27] MEDS: LACTATED RINGERS 1,000 ML IV SCH ×2 (08:44→09:15)
[2021-09-27 08:54] VITALS: RESP 16; TEMP 97.2
[2021-09-27] MEDS ORDERED: .fentaNYL (PF) 50 MCG/ML 2 ML AMP ONE (09:16)
[2021-09-27] MEDS ORDERED: MIDAZOLAM 2 MG/2 ML VIAL ONE (09:16)
[2021-09-27] MEDS ORDERED: PROPOFOL 10 MG/ML 20 ML VIAL IV ONE (09:16)
--- NOTE | 2021-09-27 09:23 | P.GSHP ---
History of Present Illness H&P Date: 09/27/21 Chief Complaint: Colon cancer screening Patient here today for colonoscopy. He has not had 1 previously. No bowel complaints. Family history of colon cancer in his grandmother. Past Medical History Additional Past Medical History / Comment(s): kidney stones History of Any Multi-Drug Resistant Organisms: None Reported Past Surgical History: No Surgical Hx Reported Additional Past Surgical History / Comment(s): testicular torsion surgery,lithotripsy Past Anesthesia/Blood Transfusion Reactions: No Reported Reaction Additional Past Anesthesia/Blood Transfusion Reaction / Comment(s): pt. states he has not previously received anesethia Smoking Status: Former smoker - Past Family History Father Family Medical History: Myocardial Infarction ([place]) Additional Family Medical History / Comment(s): pt. states his father has had an [place] in the past and has a pacemaker Medications and Allergies Home Medications Medication Instructions Recorded Confirmed Type No Known Home Medications 09/22/21 09/27/21 History Allergies Allergy/AdvReac Type Severity Reaction Status Date / Time ciprofloxacin [From Cipro] Allergy Hallucinati Verified 09/27/21 08:38 ons Surgical - Exam Vital Signs Temp Pulse Resp BP Pulse Ox 97.2 F L 72 16 153/99 97 09/27/21 08:44 09/27/21 08:44 09/27/21 08:44 09/27/21 08:44 09/27/21 08:44 Physical exam: General: Well-developed, well-nourished HEENT: Normocephalic, sclerae nonicteric Abdomen: Nontender, nondistended Extremities: No edema Neuro: Alert and oriented Assessment and Plan (1) Colon cancer screening Narrative/Plan: Will proceed with colonoscopy at this time Current Visit: Yes Status: Acute Code(s): Z12.11 - ENCOUNTER FOR SCREENING FOR MALIGNANT NEOPLASM OF COLON SNOMED Code(s): 603435311
--- NOTE | 2021-09-27 09:35 | P.PCN ---
Date of Procedure: 09/27/21 Procedure(s) Performed: PREOPERATIVE DIAGNOSIS: Colon cancer screening POSTOPERATIVE DIAGNOSIS: Hepatic flexure polyp PROCEDURE: Colonoscopy with snare polypectomy ANESTHESIA: MAC SURGEON: Dillon Mcrae M.D. SPECIMENS: Hepatic flexure polyp ENDOSCOPIC PROCEDURE: The patient was placed on the endoscopy table in the left decubitus position. The Olympus colonoscope was inserted into the anus and passed under direct visualization to the base of the cecum. The appendiceal orifice was visualized. From that point the scope was slowly withdrawn inspecting all surfaces carefully. There were no neoplastic inflammatory or polypoid lesions throughout the cecum or ascending colon. At the hepatic flexure a small sessile polyp was removed using the snare with cautery technique. The remainder of the transverse descending sigmoid and rectum appeared normal. There was no visible diverticulosis. Digital rectal examination was normal. The patient was taken to the recovery room in stable condition per anesthesia guidelines. RECOMMENDATIONS: Resume diet. Follow-up colonoscopy anticipated in 5 years. Await biopsy results.
[2021-09-27] MEDS ORDERED: IV FLUID CONTINUATION 1,000 ML IV ONE (09:40)
[2021-09-27 10:01] VITALS: BP 146/96; PULSE 63
== END 2021-09-27 10:19 | disposition home or self-care (01) ==
LOC: ORWHC2ENDO 08:20
PROVIDERS: ATTEND Surgery
DX: Z12.11 Encounter for screening for malignant neoplasm of colon (principal); D12.3 Benign neoplasm of transverse colon; Z83.71 Family history of colonic polyps; Z87.442 Personal history of urinary calculi; Z98.890 Other specified postprocedural states; Z87.891 Personal history of nicotine dependence; Z82.49 Family history of ischemic heart disease and other diseases of the circulatory system; Z79.899 Other long term (current) drug therapy; Z88.1 Allergy status to other antibiotic agents
CPT/HCPCS: 88305; 45385; J2250; J3010; J2704

== ENCOUNTER → 2022-03-17 | Outpatient (CLI) | payer BC ==
--- NOTE | 2022-03-18 09:54 | CT ---
EXAMINATION TYPE: CT abdomen pelvis wo con DATE OF EXAM: 03/17/2022 COMPARISON: 12/29/1979 HISTORY: bilateral flank pain, h/o renal stones CT DLP: 473.6 mGycm Automated exposure control for dose reduction was used. TECHNIQUE: Helical acquisition of images was performed from the lung bases through the pelvis. FINDINGS: LUNG BASES: Paraseptal emphysema along the medial aspect of the right lung base. Subsegmental linear changes most typical of atelectasis.. LIVER/GB: No gallstones. Stable 3 cm lesion centrally within the liver measuring 9 Hounsfield units c ompatible with simple cyst. PANCREAS: No significant abnormality is seen. SPLEEN: Small accessory spleen incidentally noted. ADRENALS: No significant abnormality is seen. KIDNEYS: Right kidney: There are 3 calcifications noted measuring 1 to 2 mm with no evidence of hydronephrosis . Hypodense lesions are indeterminate by noncontrast technique but similar relative to prior exam. Left kidney: There are approximately 7 calcifications within the left kidney largest measuring 5 mm. No hydronephrosis. Hypodense lesion central renal pelvis stable from prior exam likely related to par apelvic cyst. URINARY BLADDER: There is a 6 mm calcification within the posterior right bladder bladder wall. This is new from prior exam. ADENOPATHY: None visualized. OSSEOUS STRUCTURES: Hypertrophic and degenerative changes spine. Chronic appearing rib deformity not ed.. BOWEL: Of bowel gas pattern nonspecific with no obstruction. Limited assessment involving the left c ontrast. Changes of diverticulosis incidentally noted. OTHER: Prostate gland is enlarged. There is normal caliber of aorta with mild atherosclerotic changes . IMPRESSION: 1. Bilateral nephrolithiasis with no evidence of hydronephrosis. 2. Bilateral stable indeterminate renal lesions. 3. Interval development of a 6 mm right posterior bladder calculus. 4. Prostate hypertrophy. 5. Diverticulosis.
== END | disposition home or self-care (01) ==
LOC: RADCTMAIN 19:02
PROVIDERS: ATTEND Urology
DX: N20.0 Calculus of kidney (principal); R31.1 Benign essential microscopic hematuria; N28.9 Disorder of kidney and ureter, unspecified; N21.0 Calculus in bladder; N40.0 Benign prostatic hyperplasia without lower urinary tract symptoms; K57.90 Diverticulosis of intestine, part unspecified, without perforation or abscess without bleeding
CPT/HCPCS: 74176

== ENCOUNTER → 2022-05-25 | Outpatient (CLI) | payer BC ==
--- NOTE | 2022-05-25 14:10 | XR ---
EXAMINATION TYPE: XR KUB DATE OF EXAM: 05/25/2022 COMPARISON: 01/07/2021 HISTORY: Pain TECHNIQUE: Two view abdominal series FINDINGS: The osseous structures are intact. The bowel gas pattern is nonspecific. Right kidney: Partially secured by bowel content with no definite suspicious calcifications. Left kidney: There are 5 calcifications overlying the left kidney largest measuring 5 mm. Hypertrophic and degenerative changes spine. Hypertrophic arthropathy of the hips. Tiny punctate calc ification in the right hemipelvis likely lies outside the course of the ureter. IMPRESSION: 1. Nonspecific abdomen. 2. Multiple 5 mm or less left renal calculi similar in appearance to prior exam.
== END | disposition home or self-care (01) ==
LOC: RADXRMAIN 13:52
PROVIDERS: ATTEND Urology
DX: N20.0 Calculus of kidney (principal)
CPT/HCPCS: 74018

== ENCOUNTER → 2022-06-21 | Outpatient (CLI) | payer BC ==
--- NOTE | 2022-06-23 08:34 | XR ---
EXAMINATION TYPE: XR KUB DATE OF EXAM: 06/21/2022 COMPARISON: 05/25/2022 HISTORY: Calculus with pain TECHNIQUE: One view abdominal series FINDINGS: The osseous structures are intact. The bowel gas pattern is nonspecific. Right kidney: Partially obscures by bowel content with no definite suspicious calcifications. Left kidney: There are 5 calcifications overlying the left kidney largest measuring 5 mm. Hypertrophic and degenerative changes spine. Hypertrophic arthropathy of the hips. Tiny punctate calc ification in the right hemipelvis likely lies outside the course of the ureter. IMPRESSION: 1. Nonspecific abdomen. 2. Multiple 5 mm or less left renal calculi similar in appearance to prior exam.
== END | disposition home or self-care (01) ==
LOC: RADXRMAIN 09:59
PROVIDERS: ATTEND Urology
DX: N20.1 Calculus of ureter (principal)
CPT/HCPCS: 74018

== ENCOUNTER → 2022-08-09 | Outpatient (CLI) | payer BC ==
[2022-08-09 18:35] LABS: Basophils # (A) 0.04 X 10*3/uL (0.00-0.10); Basophils % (A) 0.7 %; Eosinophils # (A) 0.06 X 10*3/uL (0.04-0.35); HCT 43.5 % (39.6-50.0); HGB 14.8 g/dL (13.0-17.0); Immature Grans, Automated 0.5 %; Lymphocytes # (A) 2.17 X 10*3/uL (0.90-5.00); Lymphocytes % (A) 35.9 %; MCH 31.2 pg (27.0-32.0); MCV 91.6 fL (80.0-97.0); Mean Platelet Volume 10.5 fL (9.5-12.2); Monocytes # (A) 0.44 X 10*3/uL (0.20-1.00); Monocytes % (A) 7.3 %; NRBC Per 100 WBC 0 /100 WBCS (0.0-0.0); Neutrophils # (A) 3.31 X 10*3/uL (1.80-7.70); Neutrophils % (A) 54.6 %; Platelet Count 287 X 10*3/uL (140-440); RBC 4.75 X 10*6/uL (4.40-5.60); WBC 6.05 X 10*3/uL (4.50-10.00)
[2022-08-09 18:47] LABS: Appearance,Urine Clear (Clear); Bilirubin,Urine Negative (Negative); Blood,Urine Negative (Negative); Color,Urine Yellow (Yellow); Ketones,Urine Trace mg/dL (Negative); Nitrite,Urine Negative (Negative); PH, Urine 5.5 (5.0-8.0); Specific Gravity,Urine 1.022 (1.001-1.030); Urobilinogen,Urine 0.2 (0.2,1.0)
[2022-08-09 18:57] LABS: Bacteria,Urine None Seen /HPF (None Seen)
[2022-08-09 19:00] LABS: Anion Gap 13.4 mmol/L (10.00-18.00); Blood Urea Nitrogen 23.8 mg/dL (9.0-27.0); Calcium 9.3 mg/dL (8.7-10.3); Carbon Dioxide 21.6 mmol/L (20.0-27.5); Potassium 4.1 mmol/L (3.5-5.5)
== END | disposition home or self-care (01) ==
LOC: LABPAT 11:17
PROVIDERS: ATTEND Urology
DX: Z01.812 Encounter for preprocedural laboratory examination (principal); N20.0 Calculus of kidney
CPT/HCPCS: 80048; 81001; 85025; 87086

== ENCOUNTER → 2022-08-10 | Day surgery (SDC) | payer BC ==
[2022-08-08 11:05] VITALS: BMI 24.2
[~2022-08-10] MED LIST: DEXAMETHASONE SOD PHOSPHATE 4 MG/ML 1 ML VIAL IV ONE; KETOROLAC 15 MG/ML 1 ML VIAL IVP ONE; LACTATED RINGERS 1,000 ML IV ONE; LACTATED RINGERS 1,000 ML IV SCH; LIDOCAINE 2% INJ 20 MG/ML (2 ML VIAL) ONE; MIDAZOLAM 2 MG/2 ML VIAL IVP ONE; MIDAZOLAM 2 MG/2 ML VIAL ONE; ONDANSETRON 4 MG/2 ML VIAL IVP ONE; PROPOFOL 10 MG/ML 20 ML VIAL IV ONE; SUCCINYLCHOLINE CHLORIDE 200 MG/10 ML VIAL IV ONE; fentaNYL (PF) 50 MCG/ML 2 ML AMP ONE
[2022-08-10 14:54] VITALS: RESP 16
--- NOTE | 2022-08-10 15:15 | XR ---
KUB HISTORY: Kidney stone, preop Frontal KUB and 2 images correlated prior exam 06/21/2022, CT 03/17/2022 Calcifications over the left kidney are stable. Calcifications within the pelvis also unchanged. Dege nerative disc changes are present in the visualized lumbar spine. Slight spinal curvature. No evident pneumoperitoneum or bowel obstruction. Right-sided renal calcifications not well seen. IMPRESSION: Left-sided nephrolithiasis is stable.
--- NOTE | 2022-08-10 16:01 | P.HPIHPCON ---
History of Present Illness H&P Date: 08/10/22 Chief Complaint: left Sided renal stones This is an 56-year-old male with history of multiple left-sided renal stone, he is symptomatic from his stones, underwent attempted left-sided ESWL for the renal pelvis stone which measured approximately 1 cm without adequate fragment ation of the stone. Discussed with him given his symptoms and he failed ESWL option of left-sided ureteroscopy with holmium laser. Discussed with him the risk which includes but not limited to bleeding, infection, injury to the ureter. Discussed also risk of anesthesia. He understood all the risk and agreed to proceed with left-sided ureteroscopy, holmium laser lithotripsy, stone basketing and possible stent insertion Consent for Procedure: I have explained the operation/procedure to the patient, including the risks, benefits, side effects, alternative therapies (including not receiving the proposed treatment or service), the likelihood of the patient achieving his/her goals, and potential recuperation problems for the procedure/sedation/analgesia, as well as any blood products, if indicated. I also explained to the patient the risks, benefits and side effects of the alternatives, as well as the risks related to not receiving the proposed procedure, care, treatment, or services. Past Medical History Additional Past Medical History / Comment(s): kidney stones History of Any Multi-Drug Resistant Organisms: None Reported Past Surgical History: No Surgical Hx Reported Additional Past Surgical History / Comment(s): testicular torsion surgery,lithotripsy Past Anesthesia/Blood Transfusion Reactions: No Reported Reaction Additional Past Anesthesia/Blood Transfusion Reaction / Comment(s): pt. states he has not previously received anesethia Additional Past Alcohol Use History / Comment(s): pt. states he quit smoking 3 months ago, pt. states he smoked on and off for the last 10 years - Past Family History Father Family Medical History: Myocardial Infarction ([place]) Additional Family Medical History / Comment(s): pt. states his father has had an [place] in the past and has a pacemaker Medications and Allergies Home Medications Medication Instructions Recorded Confirmed Type No Known Home Medications 09/22/21 08/10/22 History Allergies Allergy/AdvReac Type Severity Reaction Status Date / Time ciprofloxacin [From Cipro] Allergy Hallucinati Verified 08/08/22 10:55 ons Surgical - Exam Vital Signs Temp Pulse Resp BP Pulse Ox 98.3 F 72 18 155/95 97 08/10/22 14:20 08/10/22 14:20 08/10/22 14:20 08/10/22 14:20 08/10/22 14:20 - General no distress, moderate pain - Eyes normal ocular movement, no pale - ENT normal nares, normal mucosa - Respiratory normal expansion, normal respiratory effort - Abdomen Abdomen: soft, non tender Assessment and Plan Assessment: OR for left-sided ureteroscopy, holmium laser lithotripsy, stone basketing and stent insertion
--- NOTE | 2022-08-10 17:41 | P.OP ---
Date of Procedure: 08/10/22 Preoperative Diagnosis: Left renal stone Postoperative Diagnosis: Same Procedure(s) Performed: Cystoscopy, left ureteroscopy, holmium laser lithotripsy, stone basketing Implants: none Anesthesia: [place] Surgeon: Wilfred Riddle Estimated Blood Loss (ml): 1 Pathology: other (left renal stone) Condition: stable Disposition: PACU Indications for Procedure: This is an 56-year-old male with history of multiple left-sided renal stone, he is symptomatic from his stones, underwent attempted left-sided ESWL for the renal pelvis stone which measured approximately 1 cm without adequate fragmentation of the stone. Discussed with him given his symptoms and he failed ESWL option of left-sided ureteroscopy with holmium laser. Discussed with him the risk which includes but not limited to bleeding, infection, injury to the ureter. Discussed also risk of anesthesia. He understood all the risk and agreed to proceed with left-sided ureteroscopy, holmium laser lithotripsy, stone basketing and possible stent insertion Operative Findings: Large stone in the midpole, additional smaller stone in the lower pole. 2 stones were seen in the bladder consistent with a recently passed ureteral stone Description of Procedure: Patient brought to the operating room, general anesthesia was induced. He was prepped and draped in sterile fashion and placed in dorsal lithotomy position. Cystoscopy fitted 21-[place] sheath was inserted per urethra, cystoscopy was performed which showed no abnormality within the bladder. Of note patient did have an obstructive lateral lobes of the prostate. Attention was then carried to the bladder which showed 2 stones in the were irrigated out, additionally left ureteral orifice was dilated consistent with a recently passed stone. At this time a sensor wire was advanced through the ureteral orifice and up to the renal pelvis. Next under fluoroscopy 1113 [place] access sheath was passed over the wire and into the proximal ureter, next flexibile ureteroscope was inserted through the access sheath, renoscopy was performed which showed a large stone in the midpole. Using the holmium laser the stone was fragmented into small fragments, sizable fragments were removed and sent for analysis. Additionally there was a stone in the lower pole which was grasped and removed. Repeat renoscopy showed no sizable fragments or any additional stones or injury to the kidney. Pullback ureteroscopy was performed which showed no injury to the ureter or any ureteral fragments. Of note the ureter was dilated and there was no ureteral edema, thus a stent was not placed. The bladder was emptied and the end of the case. Patient tolerated the procedure well was taken to recovery in stable condition
[2022-08-10 18:00] VITALS: TEMP 96.9
[2022-08-10] MEDS: HYDROmorphone 0.5 MG/0.5 ML SYRINGE IVP PRN ×3 (18:02→18:19)
--- NOTE | 2022-08-10 19:44 | FL ---
EXAMINATION TYPE: FL guidance operating room DATE OF EXAM: 08/10/2022 CLINICAL HISTORY: Left renal calcification TECHNIQUE: Fluoroscopy. COMPARISON: None. FINDINGS: Fluoroscopic guidance was provided during procedure performed by Dr. Riddle. A total of 1 0 seconds of fluoroscopic time was utilized during the procedure and 2 spot images was acquired. IMPRESSION: As Above.
[2022-08-10 19:55] VITALS: BP 150/72; PULSE 70
== END ==
LOC: OR 13:43
PROVIDERS: ATTEND Urology
DX: N20.0 Calculus of kidney (principal); Z82.49 Family history of ischemic heart disease and other diseases of the circulatory system; Z79.899 Other long term (current) drug therapy; Z87.891 Personal history of nicotine dependence
CPT/HCPCS: 82365; 74018; 52353; C1769 ×2; J2250; J0330; J1100; J0690; J2405; J3010; J1885; J2704; J1170; J2001